=== PATIENT | male | born 1955 | race Caucasian/White ===

== ENCOUNTER 2018-10-17 12:39 | Outpatient (CLI) | payer OTHER ==
--- NOTE | 2018-10-17 15:09 | MRI ---
MRI RIGHT SHOULDER WITHOUT IV CONTRAST: HISTORY: Internal derangement, right shoulder. Right shoulder pain with limited range of motion. Prior right shoulder surgery x2. FINDINGS: Marked AC joint arthrosis changes with some prominent subchondral cystic changes and some joint hyper trophy, particularly cranially. There appears to be a very small, linear defect extending from the s ubacromial bursa, into the joint. There is a small undersurface and minimally delaminating tear of t he conjoined tendon/infraspinatus tendon, without evidence for a complete full-thickness component or retraction. The biceps tendon and subscapularis tendons are intact. Abnormal signal associated wit h the superior labrum, evidence for a SLAP tear. No acute osteochondral defect. Generalized rotator cuff tendinopathy. IMPRESSION: 1. Generalized rotator cuff tendinopathy. 2. Marked acromioclavicular joint arthrosis and hypertrophic changes, with a small linear focus exte nding from the subacromial into the acromioclavicular joint. 3. Undersurface and delaminating tear of the infraspinatus tendon/conjoined tendon, evidence for a s uperior labrum anterior and posterior tear. POS: [facility]
--- NOTE | 2018-10-17 16:01 | MRI ---
MRI LEFT KNEE WITHOUT CONTRAST: 10/17/18 HISTORY: Pain, M23.92 internal derangement left knee. COMPARISON: None. FINDINGS: MEDICAL MENISCUS: There is a high grade radial oblique tear posterior root attachment medial meniscus with subsequent i ntrameniscal degeneration of body and posterior horn and 3 mm medial gutter extrusion. There is sever e attenuation of the footprint with less than 10% fibers remaining at implantation. LATERAL MENISCUS: Intact. ACL and PCL are intact. MCL and LCL are intact. EXTENSOR MECHANISM: Quadriceps tendon, patellar and patellar tendon are intact. CARTILAGE: Patellofemoral compartment: Some high grade central trochlear groove fissuring and delamination. Medial compartment: Full thickness cartilage delamination cartilage loss on the central weightbearing surfaces medial fem oral condyle and medial tibial plateau. Early subchondral reactive marrow changes. Lateral compartment: A focal area of cartilage fissuring posterior weightbearing surface of the lateral femoral condyle wi th adjacent cartilage fissuring. BONES: There is a large subcortical cyst formation near the footprint of the posterior horn medial meniscus within the tibial epiphysis. There is moderate osteophyte formation medial and lateral compartments. SOFT TISSUES: There is prepatellar bursa effusion and soft tissue swelling. IMPRESSION: 1. 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 2. 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 3. Prepatellar bursa effusions with adjacent soft tissue swelling. POS: [facility]
== END 2018-10-17 12:40 | disposition home or self-care (01) ==
LOC: BICMRI 12:39
PROVIDERS: ATTEND Family Medicine
DX: M23.92 Unspecified internal derangement of left knee (principal); M24.811 Other specific joint derangements of right shoulder, not elsewhere classified; S83.242A Other tear of medial meniscus, current injury, left knee, initial encounter; M94.262 Chondromalacia, left knee; M25.462 Effusion, left knee; M75.81 Other shoulder lesions, right shoulder; M19.011 Primary osteoarthritis, right shoulder; M75.101 Unspecified rotator cuff tear or rupture of right shoulder, not specified as traumatic

== ENCOUNTER 2019-10-10 13:34 | Outpatient (CLI) | payer OTHER ==
--- NOTE | 2019-10-10 17:33 | MRI ---
PROVIDED CLINICAL HISTORY: Left knee pain. FINDINGS: Comparison is made with the study dated 10/17/18. The anterior cruciate ligament, posterior cruciate ligament, medial collateral ligament and lateral c ollateral ligamentous complex demonstrate an intact MR appearance, as does the extensor mechanism. There is full thickness radial tear involving the posterior horn of the medial meniscus as it approac hes the meniscal root. There is grade III signal involving the body of the medial meniscus. The later al meniscus demonstrates a small radial tear involving the body. There is extensive full thickness articular cartilage loss involving the central weightbearing portio ns of the medial femorotibial joint. No additional full thickness articular cartilage loss is evident . There is a physiologic amount of fluid within the knee joint. There is Gonzalez's cyst formation which e xtends along the posteromedial aspect of the proximal tibia. No focal concerning regional marrow or muscle signal abnormality apparent. IMPRESSION: 1. Full thickness radial tear involving the posterior horn of the medial meniscus as it approach es the meniscal root. Persistent and/or recurrent grade III signal involving the body of the medial m eniscus. 2. Small radial tear involving the body of the lateral meniscus. 3. Extensive medial femorotibial articular chondrosis. POS: [facility]
== END 2019-10-10 13:35 | disposition home or self-care (01) ==
LOC: BICMRI 13:34
PROVIDERS: ATTEND Orthopaedic Surgery Sports Medicine
DX: M25.562 Pain in left knee (principal); S83.242A Other tear of medial meniscus, current injury, left knee, initial encounter; S83.282A Other tear of lateral meniscus, current injury, left knee, initial encounter; M24.10 Other articular cartilage disorders, unspecified site

== ENCOUNTER 2020-01-22 12:41 | Outpatient (CLI) | payer OTHER ==
[2020-01-22 13:39] LABS: Estimated GFR-MDRD - POC Greater than 90
--- NOTE | 2020-01-22 14:49 | MRI ---
MRI of the left knee with and without IV contrast INDICATION: History of left knee pain COMPARISON: Prior MRI of the left knee dated October 10, 2019 TECHNIQUE: Multiplanar multisequence MR images were obtained of the left knee with and without contra st utilizing 18 cc of MultiHance. FINDINGS: Again seen is a full-thickness radial tear involving the posterior root of the medial meniscus. There is a horizontally oriented oblique tear involving the body and posterior junction of the medial meniscus with a displaced inferior meniscal flap again seen within the inferior medial gutter. There is a parameniscal cyst protruding from the posterior junction of the medial meniscus through the posterior medial joint capsule and along the anterior margin of the MCL measuring 4.7 x 1.2 x 4.8 cm. There is nonspecific subcutaneous edema overlying the medial aspect of the left knee. Additional subcutaneous edema seen overlying the anterior aspect of the left knee. There is a stable small radia l tear involving the central margin of the lateral meniscal body. Moderate osteoarthrosis of the left knee is similar appearing predominantly involving the medial femoral tibial compartment. There i s moderate chondrosis involving the lateral femoral tibial compartment. There is a small Gonzalez's cyst. The ACL, MCL, LCLC and extensor mechanism are intact. There is a mild joint effusion. IMPRESSION: 1. Persistent medial meniscal tears. There is a parameniscal cyst that has increased in size from the prior exam extending from the posterior junction of the medial meniscus, through the posterior medial joint capsule and along the medial aspect of the MCL 2. Nonspecific subcutaneous edema of the medial and anterior left knee without overt evidence of a dr ainable fluid collection. 3. Stable moderate osteoarthrosis of the left knee. 4. Mild joint effusion
[2020-01-22] MEDS ORDERED: Magnevist 469MG/ML 20 ML VIAL ONE (15:58)
== END 2020-01-22 12:42 | disposition home or self-care (01) ==
LOC: BICMRI 12:41
PROVIDERS: ATTEND Orthopaedic Surgery Sports Medicine
DX: M25.562 Pain in left knee (principal); S83.242A Other tear of medial meniscus, current injury, left knee, initial encounter; R60.0 Localized edema; M17.12 Unilateral primary osteoarthritis, left knee; M25.462 Effusion, left knee
CPT/HCPCS: 82565; A9579

== ENCOUNTER 2022-01-20 13:00 | Outpatient (CLI) | payer OTHER | END 2022-01-20 13:01 | disposition home or self-care (01) | LOC: SCSCT 13:00 | PROVIDERS: ATTEND Orthopaedic Surgery Sports Medicine | DX: M25.562 Pain in left knee (principal); Z96.652 Presence of left artificial knee joint ==